=== PATIENT | male | born 1965 | race Caucasian/White ===

== ENCOUNTER 2019-07-28 13:20 | Outpatient (CLI) | payer MEDICARE, SELFPAY ==
--- NOTE | ~2019-07-28 | XR_ITS ---
EXAMINATION: XR hip LT min 2V DATE: 07/28/2019 13:58 INDICATION: Left hip pain. TECHNIQUE: 3 views of left hip were obtained. COMPARISON: None. FINDINGS: Bone alignment is normal. No fracture. There is severe left hip osteoarthritis. IMPRESSION: 1. Severe left hip osteoarthritis. Reviewed, dictated and finalized at location A.
== END 2019-07-28 13:21 | disposition home or self-care (01) ==
PROVIDERS: Visit Provider Anesthesiology
DX: M16.12 Unilateral primary osteoarthritis, left hip (principal)
CPT/HCPCS: 73502

== ENCOUNTER 2023-07-03 10:03 | Emergency (ER) | payer MEDICARE, SELFPAY ==
--- NOTE | ~2023-07-03 | US_ITS ---
EXAMINATION: US venous doppler [facility] DATE: 07/03/2023 15:35 INDICATION: Pain and Tenderness in Calf/Leg . TECHNIQUE: Grayscale images without and with compression and Doppler images of the left lower extremi ty veins were obtained. COMPARISON: None FINDINGS: The left common femoral vein, profunda (deep) femoral vein, femoral vein, popliteal vein, peroneal v ein, posterior tibial veins, and greater saphenous vein are patent. IMPRESSION: Patent left lower extremity veins. No evidence of deep venous thrombosis. Reviewed, dictated and finalized at location K. MACHINE OPERATOR
[2023-07-03 10:07] VITALS: BP 140/84; PULSE 95; RESP 18; TEMP 36.6; O2SAT 100
--- NOTE | 2023-07-03 10:10 | ECG_ITS ---
Measurements Intervals [place] Rate: 93 P: 22 [place]: 189 QRS: 10 QRSD: 94 T: 28 QT: 337 QTc: 420 Interpretive Statements SINUS RHYTHM NORMAL ELECTROCARDIOGRAM NO PREVIOUS ECG AVAILABLE FOR COMPARISON Electronically Signed On 07-03-2023 19:12:40 SPORTS SPECIALIST by Maico Reeves M.D.
[2023-07-03 14:18] VITALS: BP 141/103; PULSE 92; RESP 20; O2SAT 96
--- NOTE | 2023-07-03 14:53 | ED.GENADULT ---
HPI - General Adult General Chief complaint: Extremity Injury, Lower Stated complaint: Left Leg Pain Time Seen by Provider: 07/03/23 14:17 History of Present Illness HPI narrative: 57-year-old male presents to the emergency department for evaluation of left leg pain. Patient denies any specific incident of fall or injury but states he began having left groin and leg pain yesterday. Patient has no prior history of DVT. Related Data Allergies Allergy/AdvReac Type Severity Reaction Status Date / Time No Known Allergies Allergy Unverified 05/12/16 16:02 Review of Systems Review of Systems: All systems reviewed & are unremarkable except as noted in HPI and below Exam Narrative: APPEARANCE: Well appearing, no pain, no distress, well-nourished. HEAD: normocephalic, atraumatic. EYES: PERRLA/EOMI, conjunctivae clear. NOSE: Normal no drainage EARS:TMS clear with good light reflex. THROAT: Pharynx clear, no exudate. NECK: Supple. No adenopathy, no masses. RESPIRATORY: Airway patent, respirations nonlabored. Clear to auscultation bilaterally, no rales, rhonchi, wheezing. CARDIOVASCULAR: Regular rate and rhythm without murmurs rubs or gallops. ABDOMINAL: Soft, nontender, nondistended, normal bowel sounds MUSCULOSKELETAL: Moves all extremities. Strength/ROM intact, No edema, No calf tenderness. NEURO: Alert. Cranial nerves II through XII intact. grossly intact SKIN: Warm, dry. Normal Color Course Course Emergency Course: 57-year-old male presenting Doemergency department for evaluation of left leg pain. Patient has no evidence of DVT on the ultrasound. The patient is afebrile with no leukocytosis and a stable hemoglobin CMP showed no acute abnormality. Patient was provided medications for pain control. Patient was encouraged close follow-up with his primary care physician. suspect muscular strain as the underlying etiology for the patient's symptoms. Vital Signs Vital signs: Vital Signs Temperature 97.8 F 07/03/23 10:07 Pulse Rate 95 07/03/23 10:07 Respiratory Rate 18 07/03/23 10:07 Blood Pressure 140/84 07/03/23 10:07 Pulse Oximetry 100 07/03/23 10:07 Oxygen Delivery Room Air 07/03/23 10:07 Temperature 97.8 F 07/03/23 16:53 Pulse Rate 95 07/03/23 16:53 Respiratory Rate 20 07/03/23 16:53 Blood Pressure 136/98 H 07/03/23 16:53 Pulse Oximetry 96 07/03/23 16:53 Oxygen Delivery Room Air 07/03/23 10:07 Medical Decision Making Vital Signs Vital Signs: Vital Signs Temperature 97.8 F 07/03/23 10:07 Pulse Rate 95 07/03/23 10:07 Respiratory Rate 18 07/03/23 10:07 Blood Pressure 140/84 07/03/23 10:07 Pulse Oximetry 100 07/03/23 10:07 Oxygen Delivery Room Air 07/03/23 10:07 Temperature 97.8 F 07/03/23 16:53 Pulse Rate 95 07/03/23 16:53 Respiratory Rate 20 07/03/23 16:53 Blood Pressure 136/98 H 07/03/23 16:53 Pulse Oximetry 96 07/03/23 16:53 Oxygen Delivery Room Air 07/03/23 10:07 Lab Data 07/03/23 14:56 07/03/23 14:56 Labs: Lab Results 07/03/23 Range/Units 14:56 WBC 9.2 (4.5-10.0) K/mm3 RBC 5.65 (4.6-6.20) M/mm3 Hgb 15.9 (14.0-18.0) g/dL Hct 49.9 (42.0-52.0) % MCV 88.3 (80-100) fl MCH 28.1 (26-34) pg MCHC 31.9 L (32-36) g/dl RDW 13.9 (11.5-14.5) % Plt Count 310 (150-375) k/mm3 MPV 8.5 (7.4-10.4) fl Immature Gran % (Auto) 0.5 (0-0.5) % Neut % (Auto) 67.3 (45.5-73.1) % Lymph % (Auto) 21.7 (18.3-44.2) % Clark % (Auto) 6.0 (2.6-8.5) % Eos % (Auto) 4.1 (0-4.4) % Baso % (Auto) 0.4 (0.2-1.2) % Lymph # (Auto) 2.00 (0.9-3.2) K/mm3 Clark # (Auto) 0.6 (0.1-0.6) K/mm3 Eos # (Auto) 0.4 H (0-0.3) K/mm3 Baso # (Auto) 0.0 (0.0-0.1) K/mm3 Abs Immat Gran (auto) 0.05 H (0.00-0.031) K/mm3 Absolute Neuts (auto) 6.2 (1.3-6.7) K/mm3 Absolute Nucleated RBC 0.0 (0.0-0.012) K/mm3 Nucleated RBC % 0.0 (0.0-0.2) % Sodium 137 (137-145)
[2023-07-03] MEDS: MORPHINE SULFATE (*CRX) 4 MG/ML INJ IV PUSH (14:57)
[2023-07-03 15:05] LABS: Basophils Percent Auto 0.4 % (0.2-1.2); Eosinophils Absolute Auto 0.4 K/mm3 (0-0.3); Eosinophils Percent Auto 4.1 % (0-4.4); Hematocrit 49.9 % (42.0-52.0); Hemoglobin 15.9 g/dL (14.0-18.0); Immature Granulocyte Absolute 0.05 K/mm3 (0.00-0.031); Immature Granulocyte Percent A 0.5 % (0-0.5); Lymphocytes Percent Auto 21.7 % (18.3-44.2); Mean Corpuscular HGB Conc 31.9 g/dl (32-36); Mean Corpuscular Hemoglobin 28.1 pg (26-34); Mean Corpuscular Volume 88.3 fl (80-100); Mean Platelet Volume 8.5 fl (7.4-10.4); Monocytes Absolute Auto 0.6 K/mm3 (0.1-0.6); Neutrophils Absolute Auto 6.2 K/mm3 (1.3-6.7); Neutrophils Percent Auto 67.3 % (45.5-73.1); Platelet Count Result 310 k/mm3 (150-375); Red Blood Count 5.65 M/mm3 (4.6-6.20); Red Cell Distribution Width 13.9 % (11.5-14.5); White Blood Count 9.2 K/mm3 (4.5-10.0)
[2023-07-03 15:18] LABS: Alanine Aminotransferase 32 U/L (6-50); Albumin Level 4.5 g/dL (3.5-5.1); Alkaline Phosphatase 80 U/L (38-126); Anion Gap 6 mmol/L (8-16); Aspartate Amino Transferase 42 U/L (17-59); Bilirubin,Total 0.6 mg/dL (0.2-1.3); Blood Urea Nitrogen 20 mg/dL (9-20); Calcium 9.5 mg/dL (8.4-10.2); Carbon Dioxide 28 mmol/L (22-30); Chloride 103 mmol/L (98-107); Estimated CRCL calculation 136 ml/min; Estimated Glomerular Filt Rate > 60; Glucose 108 mg/dL (65-110); Potassium 4.3 mmol/L (3.4-5.0); Sodium 137 mmol/L (137-145)
[2023-07-03 16:53] VITALS: BP 136/98; PULSE 95; RESP 20; TEMP 36.6; O2SAT 96
== END 2023-07-03 16:54 | disposition home or self-care (01) ==
PROVIDERS: Emergency Provider Emergency Medicine; PCP Nurse Practitioner
DX: M79.605 Pain in left leg (principal)
CPT/HCPCS: 36415; 80053; 85025; 93005; 93971; 96374; 99284; J2270

== ENCOUNTER 2023-07-29 13:50 | Outpatient (CLI) | payer MEDICARE, SELFPAY ==
--- NOTE | ~2023-07-29 | XR_ITS ---
EXAMINATION: XR hip LT min 2V DATE: 07/29/2023 14:30 INDICATION: Left hip pain. TECHNIQUE: 2 views of left hip were obtained. COMPARISON: Left hip radiographs 07/28/2019 FINDINGS: Bone alignment is normal. No fracture. There is advanced left hip osteoarthritis including flattening of superior aspect of femoral head. IMPRESSION: 1. Advanced left hip osteoarthritis. Reviewed, dictated and finalized at location A.
--- NOTE | ~2023-07-29 | XR_ITS ---
EXAMINATION: XR lumbar spine 6V w bending DATE: 07/29/2023 14:30 INDICATION: Left hip pain. TECHNIQUE: 6 views of lumbar spine including flexion and extension views were obtained. COMPARISON: Lumbar spine MRI 08/17/2018 FINDINGS: Bone alignment is normal. Vertebral body heights are normal. There is mildly decreased disc height at L1-L2 and L2-L3. There is no abnormal motion with flexion or extension. There is multileve l severe facet joint osteoarthritis. IMPRESSION: 1. Mild lumbar spondylosis. Reviewed, dictated and finalized at location A. IMPRESSION: 1. Mild lumbar spondylosis.
== END 2023-07-29 13:51 | disposition home or self-care (01) ==
LOC: ANHIMG 13:59
PROVIDERS: PCP Nurse Practitioner; Visit Provider Nurse Practitioner
DX: M25.552 Pain in left hip (principal); M43.06 Spondylolysis, lumbar region; M16.12 Unilateral primary osteoarthritis, left hip
CPT/HCPCS: 72114; 73502

== ENCOUNTER 2024-04-18 13:57 | Outpatient (CLI) | payer MEDICARE, SELFPAY ==
--- NOTE | ~2024-04-18 | XR_ITS ---
EXAMINATION: XR lg joint inject/asp w image DATE: 04/18/2024 14:53 INDICATION: Left hip osteoarthritis. TECHNIQUE: A time-out was performed to verify the patient's name, date of , and procedure to b e performed. The procedure including the risks, benefits, and alternatives was discussed with the pat ient. Risks discussed included bleeding and infection. The patient understood the risks and agreed to proceed. The skin overlying the left hip joint was prepped and draped in usual sterile fashion. An esthetic was administered with 1% lidocaine subcutaneously. A 22 G needle was advanced under fluoros copic guidance into the joint. Subsequently, injectate consisting of 3 mL 1% lidocaine and 1 mL 80 m g/mL Depo-Medrol was instilled. The needle was removed and the entry site was cleaned and dressed. There were no immediate complications. Fluoroscopy exposure time was 0.1 minutes. The total number of images was 1. FINDINGS: Real-time fluoroscopy demonstrates the needle in the left hip joint. Patient's pain prior t o procedure:02/23. Patient's pain following the procedure: 07/24. IMPRESSION: 1. Fluoroscopy guided left hip joint injection of local anesthetic and steroid with decrease in the p atient's presenting pain. Reviewed, dictated and finalized at location A. CLAMPER IMPRESSION: 1. Fluoroscopy guided left hip joint injection of local anesthetic and steroid with decrease in the patient's presenting pain.
== END 2024-04-18 13:58 | disposition home or self-care (01) ==
PROVIDERS: PCP Nurse Practitioner; Visit Provider Physician Assistant
DX: M16.52 Unilateral post-traumatic osteoarthritis, left hip (principal)
CPT/HCPCS: 20610; 77002; J1010; J2003

== ENCOUNTER 2024-10-17 12:07 | Outpatient (CLI) | payer MEDICARE, SELFPAY ==
--- NOTE | ~2024-10-17 | XR_ITS ---
EXAMINATION: XR lg joint inject/asp w image DATE: 10/17/2024 13:20 INDICATION: Post traumatic osteoarthritis of the left hip TECHNIQUE: A time-out was performed to verify the patient's name, date of , and procedure to b e performed. The procedure including the risks, benefits, and alternatives was discussed with the pat ient. Risks discussed included bleeding and infection. The patient understood the risks and agreed to proceed. The skin overlying the left hip joint was prepped and draped in usual sterile fashion. An esthetic was administered with 1% lidocaine subcutaneously. A 22 G needle was advanced under fluoros copic guidance into the joint. Injection of 2 mL of Omnipaque 240 confirmed intra-articular position of the needle. Subsequently, injectate consisting of 4 mm of a 3:1 mixture of 1% lidocaine: 80 mg/m L Depo-Medrol for a total dosage of 80 mg Depo-Medrol was instilled. Washout of contrast was seen con firming intra-articular administration. The needle was removed and the entry site was cleaned and lucila ssed. There were no immediate complications. Fluoroscopy exposure time was 0.4 minutes. The total nu mber of images was 2. Total DAP was 5.792 Gycm^2. FINDINGS: Real-time fluoroscopy demonstrates the needle in the left hip joint. Patient's pain prior t o procedure:01/24. Patient's pain following the procedure: 01/24. IMPRESSION: 1. Successful left hip joint injection of local anesthetic and steroid with no change in the patient' s presenting pain. Reviewed, dictated and finalized at location A. IMPRESSION: 1. Successful left hip joint injection of local anesthetic and steroid with no change in the patient's presenting pain.
--- OUTSIDE RECORDS SUMMARY | 2024-10-17 12:14 | XMS_ITS | Referral Summary ---
Author Organization [address] Address [address] [place] [id number] Care Team Providers Care Cable Television Program Director Name Role Phone Stefan Kevin NP Primary Care Provider Encounters Date Type Department Care Team Description 07/24/2024 Orders Only [facility] Sports Medicine and Primary Care at [address] [place] [address] Nhan Pennington PA Post-traumatic osteoarthritis of left hip (Primary Dx) from Last 3 Months Allergies No known active allergies Medications ibuprofen (ADVIL,MOTRIN) 800 mg tablet Take 1 tablet (800 mg total) by mouth 3 (three) times a day as needed 12/05/2019 Active albuterol HFA (PROVENTIL HFA,VENTOLIN HFA,PROAIR HFA) 90 mcg/actuation inhaler every 6 (six) hours as needed 01/04/2020 Active quinapriL (ACCUPRIL) 40 mg tablet Take 1 tablet (40 mg total) by mouth 2 (two) times a day 01/04/2020 Active gabapentin (NEURONTIN) 600 mg tablet Take 1 tablet (600 mg total) by mouth 3 (three) times a day 02/01/2024 Active HYDROcodone-acet aminophen (NORCO) 10-325 mg per tablet Take 1 tablet by mouth 2 (two) times a day as needed 02/18/2024 Active lisinopriL (PRINIVIL,ZESTRI L) 40 mg tablet Take 1 tablet (40 mg total) by mouth daily for 90 days 01/11/2024 Active cyclobenzaprine (FLEXERIL) 10 mg tablet Take 1 tablet (10 mg total) by mouth 2 (two) times a day as needed for muscle spasms 60 tablet 2 07/12/2024 Active Active Problems No known active problems Social History Tobacco Use Types Packs/Day Years Used Date Smoking Tobacco: Never Smokeless Tobacco: Never Alcohol Use Standard Drinks/Week Comments Never 0 (1 standard drink = 0.6 oz pur e alcohol) AUDIT-C Answer Date Recorded Q1: How often do you have a drink containing alcohol? Never 07/12/2024 Q2: How many drinks containi ng alcohol do you have on a typical day when you are drinking? Patient does not drink Q3: How often do you have si x or more drinks on one occasion? Never 07/12/2024 Sex and Gender Information Value Date Recorded Sex Assigned at Not on file Legal Sex Male 2:55 AM DIET CONSULTANT Gender Identity Not on file Sexual Orientation Not on file Last Filed Vital Signs Vital Sign Reading Time Taken Comments Blood Pressure 180/85 07/12/2024 11:41 AM DIET CONSULTANT Pulse 90 07/12/2024 11:41 AM DIET CONSULTANT Temperature - - Respiratory Rate 18 03/29/2024 11:27 AM DIET CONSULTANT Oxygen Saturation - - Inhaled Oxygen Concentration - - Weight 136.1 kg (300 lb) 03/29/2024 11:27 AM DIET CONSULTANT Height 175.3 cm (5' 9) 07/12/2024 11:41 AM DIET CONSULTANT Body Mass Index 44.3 03/29/2024 11:27 AM DIET CONSULTANT Plan of Treatment Not on file Insurance MEDICARE [facility] Address: [address] [address] [place] [address] [employer] MEDICARE HMO MEDICARE Care Teams Cable Television Program Director Relationship Specialty Start Date End Date Stefan Kevin NP [address] [place] [address] [place] [address] PCP - General Nurse Practitioner 09/14/17
--- OUTSIDE RECORDS SUMMARY | 2024-10-17 12:14 | XMS_ITS | Continuity of Care Document ---
Author Organization [facility] Address [address] [place] [address] Phone Care Team Providers Care Dye Range Tender Name Role Phone Sultana Urena Unavailable Unavailable Procedures Procedure Date Special Reports Or Forms Special Reports Or Forms Office/outpatient Visit, Est Special Reports Or Forms Advance Directives Directive Yes / No Effective Date File Name No Information Encounters Encounter Description Practice Location Reason(s) For Visit Diagnoses Date Provider Providers Copied on Encounter [facility], [address] [place] [address] [address], [place], [place], [id number], tel:[phone] [facility] No Information [phone] 8 Ayanna Cox [address] , [address], [place], [address], [place]. tel:[phone] [facility], [address] [place] [address] [address], [place], [place], [id number], [place] tel:[phone] [facility] [address] [place] No Information 0-200 8 Ayanna Cox [address] , [address], [place], [address], [place]. tel:[phone] Office/outpat ient Visit, Est [facility], [address] [place] [address] [address], [place], [place], [id number], tel:[phone] [facility] [place] No Information [address] Ayanna [address]. [address] [facility] , [address], [place], [place], [facility], [place]. tel:[phone] [facility], [address], [place], [place], [id number], [place] tel:[phone] SEC [facility] No Information [address] Ayanna Newtonn. [address] [facility] , [address], [place], [address], [place]. tel:[phone] Family History Family Member Type Diagnosis Age At Onset No Information Payers Payer name Insurance type Covered alliance party ID Authoriza tion(s) No Information Social History Type Description Quantity Date Captured Comments Sex Male Smoking Status No Information Chief Complaint And Reason For Visit No Information Reason For Referral Reason For Referral No Information History Of Present Illness Encounter Date Complaint History Of Prese nt Illness No Information Functional Status Date Functional Assessmen t No Information Instructions Date Instruction Additional Infor mation No Information Assessments Type Assessment Date No Information Patient Care Teams Name Effective Dates (start - stop) Status Members No Information
--- OUTSIDE RECORDS SUMMARY | 2024-10-17 12:14 | XMS_ITS | Clinical Summary ---
Author Organization [address] Address [address] [place] [address] Care Team Providers Care Bulk Picker Name Role Phone Stefan Kevin NP Primary Care Provider Allergies No known active allergies Medications ibuprofen [...] Active Active Problems No known active problems Encounters Date Type Department Care Team Description 07/24/2024 Orders Only [facility] Sports Medicine and Primary Care at [address] [place] [address] Nhan Pennington PA Post-traumatic osteoarthritis of left hip (Primary Dx) from Last 3 Months Medical History Medical History Date Comments Osteoarthritis Asthma Hypertension Family History Medical History Relation Name Comments Arthritis Other Hypertension Other Relation Name Status Comments Other Social History Tobacco Use Types Packs/Day Years [...] on file Legal Sex Male 2:55 AM DISTRICT MANAGER Gender Identity Not on file Sexual Orientation Not on file Obstetrics History Last Filed Vital Signs Vital Sign Reading Time Taken Comments Blood Pressure 180/85 07/12/2024 11:41 AM DISTRICT MANAGER Pulse 90 07/12/2024 11:41 AM DISTRICT MANAGER Temperature - - Respiratory Rate 18 03/29/2024 11:27 AM DISTRICT MANAGER Oxygen Saturation - - Inhaled Oxygen Concentration - - Weight 136.1 kg (300 lb) 03/29/2024 11:27 AM DISTRICT MANAGER Height 175.3 cm (5' 9) 07/12/2024 11:41 AM DISTRICT MANAGER Body Mass Index 44.3 03/29/2024 11:27 AM DISTRICT MANAGER Plan of Treatment Health Maintenance Due Date Last Done Comments Colon Cancer Screening-Colonoscopy 1964 Depression Screening 1964 Hepatitis C Screening 1964 Prostate Cancer Screening-PSA 1964 DTaP/Tdap/Td Vaccine (1 - Tdap) 10/28/1975 Hepatitis B Screening 1982 Regular Well Visit/Exam 18-64 1982 Zoster Vaccine (1 of 2) 2014 Covid-19 Vaccine ( season) 2024 09/09/2022, 04/25/2021, 08/20/2020, Additional history exists Influenza Vaccine (Season Ended) 2025 Pneumococcal vaccine <65 Aged Out No longer eligible based on patient's age to complete this topic Insurance [facility] OTHER Address: [address] [address] [place] [address] MEDICARE Care Teams Bulk Picker Relationship Specialty Start Date End Date Stefan Kevin NP [address] [place] [address] [place] [id number] PCP - General Nurse Practitioner 09/14/17
== END 2024-10-17 12:08 | disposition home or self-care (01) ==
PROVIDERS: PCP Nurse Practitioner; Visit Provider Physician Assistant
DX: M16.52 Unilateral post-traumatic osteoarthritis, left hip (principal)
CPT/HCPCS: 20610; 77002; Q9966